=== PATIENT | male | born 1980 | race Hispanic/Latino ===

== ENCOUNTER 2020-10-10 19:18 | Emergency (ER) | payer OTHER ==
[2020-10-10] MEDS ORDERED: HYDROcodone/ACETAMINOPHEN 10-325MG TAB PO ONE (19:26)
--- NOTE | 2020-10-10 19:30 | Emergency Department Report ---
ED Lower Extremity HPI - General Stated Complaint: RT ANKLE INJURY Time Seen by Provider: 10/10/20 19:26 Source: patient Mode of arrival: Stretcher Limitations: No Limitations - History of Present Illness Initial Comments: This is a 40-year-old male nontoxic, well nourished in appearance, no acute signs of distress presents to the ED with c/o of right ankle pain. Patient stated had an injury at work today after twisting it. Patient denies any other trauma or injuries. Denies decreased ROM but has pain with gait. Denies any fever, chills, nausea, vomiting, headache, stiff neck, chest pain or shortness of breath. Patient denies any numbness or tingling. Denies any allergies. -: This evening Injury: Ankle: Right Type of Injury: inversion Place: work Severity: moderate Severity scale (0 -10): 8 Improves With: immobilization Worsens With: weight bearing, movement, palpation Associated Symptoms: swelling, unable to bear weight. denies: snap/pop sensation, numbness, tingling - Related Data Previous Rx's Medication Instructions Recorded Last Taken Type Naproxen 500 mg PO Q12H PRN #20 tablet 10/10/20 Unknown Rx Allergies Allergy/AdvReac Type Severity Reaction Status Date / Time No Known Allergies Allergy Unverified 10/10/20 19:40 ED Review of Systems ROS: Stated complaint: RT ANKLE INJURY Other details as noted in HPI Comment: All other systems reviewed and negative Constitutional: denies: chills, fever Eyes: denies: eye pain, eye discharge, vision change ENT: denies: ear pain, throat pain Respiratory: denies: cough, shortness of breath, wheezing Cardiovascular: denies: chest pain, palpitations Endocrine: no symptoms reported Gastrointestinal: denies: abdominal pain, nausea, diarrhea Genitourinary: denies: urgency, dysuria Musculoskeletal: denies: back pain, joint swelling, arthralgia Skin: denies: rash, lesions Neurological: denies: headache, weakness, paresthesias Psychiatric: denies: anxiety, depression Hematological/Lymphatic: denies: easy bleeding, easy bruising ED Past Medical Hx - Medications Home Medications: Home Medications Medication Instructions Recorded Confirmed Last Taken Type Naproxen 500 mg PO Q12H PRN #20 tablet 10/10/20 Unknown Rx ED Physical Exam - General General appearance: alert, in no apparent distress - Head Head exam: Present: atraumatic, normocephalic - Eye Eye exam: Present: normal appearance - Neck Neck exam: Present: normal inspection - Respiratory Respiratory exam: Absent: respiratory distress - Cardiovascular Cardiovascular Exam: Present: regular rate - Extremities Exam Extremities exam: Present: full ROM, tenderness, normal capillary refill, joint swelling. Absent: calf tenderness - Expanded Lower Extremity Exam Right Hip exam: Present: normal inspection, full ROM. Absent: tenderness, swelling Upper Leg exam: Present: normal inspection, full ROM. Absent: tenderness, swelling Knee exam: Present: normal inspection, full ROM. Absent: tenderness, swelling Lower Leg exam: Present: normal inspection, full ROM. Absent: tenderness, swelling Ankle exam: Present: full ROM, tenderness, swelling, ecchymosis. Absent: abrasion, laceration, deformity, crepidus, dislocation, erythema, anterior draw sign Foot/Toe exam: Present: normal inspection, full ROM. Absent: tenderness, swelling Neuro vascular tendon exam: Present: no vascular compromise Gait: Positive: unable to bear weight - Back Exam Back exam: Present: normal inspection, full ROM - Neurological Exam Neurological exam: Present: alert, oriented X3 - Psychiatric Psychiatric exam: Present: normal affect, normal mood - Skin Skin exam: Present: warm, dry, intact, normal color. Absent: rash ED Course Vital Signs 10/10/20 10/10/20 19:38 19:40 Temperature 97.9 F Pulse Rate 80 Respiratory 18 18 Rate Blood Pressure 158/104 O2 Sat by Pulse 100 Oximetry - Reevaluation(s) Reevaluation #1: 10/10/20 19:30 Patient is speaking in full sentences with no signs of distress noted. ED Lower Extremity MDM - Medical Decision Making This is a 40-year-old male that presents with right ankle sprain. Patient is stable and was examined by me. Patient is notified of the xray results with no questions noted by the patient. Xray dictated by the radiologist within normal limits. Patient recieved ankle stirrup and crutches and was educated by RN how to use crutches. Patient was instructed to Follow-up with a orthopedic doctor in 3-5 days or if symptoms worsen and continue return to emergency room as soon as possible. At time of discharge, the patient does not seem toxic or ill in appearance. No acute signs of distress noted. Patient agrees to discharge treatment plan of care. No further questions noted by the patient. Critical care attestation.: If time is entered above; I have spent that time in minutes in the direct care of this critically ill patient, excluding procedure time. ED Disposition Clinical Impression: Right ankle sprain Qualifiers: Encounter type: initial encounter Involved ligament of ankle: unspecified ligament Qualified Code(s): S93.401A - Sprain of unspecified ligament of right ankle, initial encounter Disposition: TO HOME OR SELFCARE Is pt being admited?: No Does the pt Need Aspirin: No Condition: Stable Instructions: RICE Therapy for Routine Care of Injuries, [id number], How to Use a Stirrup Ankle Brace, Crutch Use, Adult, [id number] Additional Instructions: Follow-up with a orthopedic doctor in 3-5 days or if symptoms worsen and continue return to emergency room as soon as possible. No physical activity until cleared by orthopedic doctor. Prescriptions: Naproxen 500 mg PO Q12H PRN #20 tablet PRN Reason: Pain , Severe (7-10) Referrals: PRIMARY CARE, [Primary Care Provider] - 3-5 Days SETH GARZA MD [Staff Physician] - 3-5 Days Forms: Work/School Release Form(ED) Time of Disposition: 20:27
[2020-10-10 19:59] VITALS: BP 158/104
--- NOTE | 2020-10-10 20:20 | XRay Report ---
LEFT ANKLE 3 VIEWS INDICATION: Left ankle pain and swelling, rolled ankle. COMPARISON: No relevant prior imaging study available. FINDINGS: No acute, displaced fracture is seen. There is remodeling in the distal fibular diaphysis and tibial plafond and consistent with healed fracture. Lateral soft tissue swelling is noted. There is a small tibiotalar joint effusion. IMPRESSION: 1. Lateral ankle sprain. No acute fracture is identified. Signer Name: Deandre Tavera MD Signed: 10/10/2020 8:16 PM Workstation Name: [id number]
== END 2020-10-10 20:45 | disposition home or self-care (01) ==
LOC: ED 19:18
DX: S93.401A Sprain of unspecified ligament of right ankle, initial encounter (principal); Z79.899 Other long term (current) drug therapy; X58.XXXA Exposure to other specified factors, initial encounter; Y93.89 Activity, other specified; Y92.89 Other specified places as the place of occurrence of the external cause; Y99.0 Civilian activity done for income or pay